=== PATIENT | female | born 1965 | race Caucasian/White ===

== ENCOUNTER 2017-02-09 11:27 | Emergency (ER) | payer BC ==
[2017-02-09 11:38] VITALS: BP 193/113
--- NOTE | 2017-02-09 12:18 | EDM.PDOC ---
ED HPI GENERAL MEDICAL PROBLEM - General Chief Complaint: General Stated Complaint: MED REACTION Time Seen by Provider: 02/09/17 11:56 Source of Information: Reports: Patient History Limitations: Reports: No Limitations - History of Present Illness INITIAL COMMENTS - FREE TEXT/NARRATIVE: Linda presents to the ER today with complaints of cough, nasal congestion, post nasal drip for over 3 weeks, possible medication reaction from bactrim of which she has taken two doses. She complains of cough, head spinning, shaking, racing thoughts, feeling fidgety and tearful. She went in to [facility] clinic this past week for a medication check was given Azithromycin for head cold and post nasal drip. She reports she telephoned the clinic due to no improvement in symptoms and was given bactrim. She denies fevers, chills. She does complain of hot flashes. Last use of tobacco was 4 years ago. - Related Data Allergies Allergy/AdvReac Type Severity Reaction Status Date / Time penicillin Allergy Cannot Verified 01/10/15 10:01 Remember Home Meds: Home Meds ALPRAZolam [Xanax] 0.5 mg PO TID PRN 01/10/15 [History] Aspirin [[place] Aspirin] 81 mg PO DAILY 01/10/15 [History] FLUoxetine HCl [Prozac] 20 mg PO DAILY 01/10/15 [History] Levothyroxine 175 mcg PO ACBRK 01/10/15 [History] Multivitamin with Minerals [Multiple Vitamin] 1 tab PO DAILY 01/10/15 [History] Past Medical History Other Musculoskeletal History: left leg hematoma Psychiatric History: Reports: Anxiety, Depression Endocrine/Metabolic History: Reports: Hypoparathyroidism - Past Surgical History Other HEENT Surgeries/Procedures: laser surg to correct vision Other GI Surgeries/Procedures: lucia, esphagus surg related to meat stuck an dperforation Social & Family History - Tobacco Use Smoking Status *Q: Former Smoker Years of Tobacco use: 30 Packs/Tins Daily: 0.5 Used Tobacco, but Quit: Yes Month Tobacco Last Used: 4 years Second Hand Smoke Exposure: No - Caffeine Use Caffeine Use: Reports: Coffee - Alcohol Use Days Per Week of Alcohol Use: 4 Number of Drinks Per Day: 3 Total Drinks Per Week: 12 - Recreational Drug Use Recreational Drug Use: Yes Recreational Drug Type: Reports: Marijuana/Hashish ED ROS GENERAL - Review of Systems Review Of Systems: See Below Constitutional: Reports: Weakness, Fatigue. Denies: Fever, Chills HEENT: Reports: Sinus Problem, Vertigo. Denies: Ear Discharge, Ear Pain, Eye Pain, Hearing Loss, Throat Pain, Throat Swelling, Vision Change Respiratory: Reports: Cough, Sputum. Denies: Shortness of Breath, Wheezing, Pleuritic Chest Pain Cardiovascular: Reports: Lightheadedness. Denies: Chest Pain, Blood Pressure Problem, Dyspnea on Exertion, Edema, Orthopnea, Palpitations, PND, Syncope Endocrine: Reports: Fatigue GI/Abdominal: Denies: Abdominal Pain, Black Stool, Bloody Stool, Constipation, Diarrhea, Difficulty Swallowing, Distension, Nausea, Vomiting : Denies: Discharge, Dysuria, Frequency, Hematuria, Incontinence, Pain, Urgency, Urinary Retention Musculoskeletal: Reports: Muscle Pain. Denies: Joint Pain, Joint Swelling, Muscle Stiffness Skin: Denies: Pruritis, Rash, Erythema, Wound Neurological: Reports: Dizziness, Weakness. Denies: Confusion, Headache, Numbness, Tingling, Trouble Speaking, Difficulty Walking, Change in Speech, Gait Disturbance Psychiatric: Reports: Anxiety, Confusion, Other (Racing thoughts). Denies: Depression, Hallucinations, Homicidal Ideation, Suicidal Ideation Hematologic/Lymphatic: Reports: No Symptoms Immunologic: Reports: No Symptoms ED EXAM, GENERAL - Physical Exam Exam: See Below Free Text/Narrative:: Linda presents to the ER today with complaints of cough, mucus production rivera in color for over three weeks, sinus congestion, head spinning, feeling shaky, racing thoughts, feeling fidgety, hot flashes and crying frequently. Clinic visit 01/29/2017: She was initially provided azithromycin, followed by bactrim PO. She was also started on venlafaxine 37.5 one tablet for seven days then increase to two tablets. She was instructed to decrease fluoxetine 40mg to 20mg PO for 7 days, then 10mg PO for 7 days then stop. Exam Limited By: No Limitations General Appearance: Alert, WD/WN, Moderate Distress Eye Exam: Bilateral Eye: EOMI, Normal Inspection, PERRL Ears: Normal External Exam, Normal Canal, Hearing Grossly Normal, Normal TMs Ear Exam: Bilateral Ear: Auricle Normal, Canal Normal, TM normal Nose: Nasal Swelling, Clear Rhinorrhea. No: No Blood, Nasal Tenderness Course - Vital Signs Last Recorded V/S: Last Vital Signs Temp 36.7 C 02/09/17 11:36 Pulse 81 02/09/17 11:36 Resp 20 02/09/17 11:36 BP 193/113 H 02/09/17 11:36 Pulse Ox 97 02/09/17 11:36 - Orders/Labs/Meds Orders: Active Orders 24 hr Category Date Time Status Chest 2V [CR] Stat Exams 02/09/17 12:11 Taken Labs: Laboratory Tests 02/09/17 02/09/17 02/09/17 Range/Units 12:26 12:26 12:27 WBC 7.2 (4.5-11.0) K/uL RBC 4.06 (3.30-5.50) M/uL Hgb 13.4 D (12.0-15.0) g/dL Hct 40.3 (36.0-48.0) % MCV 99 H (80-98) fL MCH 33 H (27-31) pg MCHC 33 (32-36) % Plt Count 244 (150-400) K/uL Neut % (Auto) 70 H (36-66) % Lymph % (Auto) 13 L (24-44) % Tama % (Auto) 11 H (2-6) % Eos % (Auto) 6 H (2-4) % Baso % (Auto) 0 (0-1) % Sodium 139 L (140-148) mmol/L Potassium 4.1 (3.6-5.2) mmol/L Chloride 105 (100-108) mmol/L Carbon Dioxide 27 (21-32) mmol/L Anion Gap 11.1 (5.0-14.0) mmol/L BUN 15 (7-18) mg/dL Creatinine 0.8 (0.6-1.0) mg/dL Est Cr Clr Drug Dosing 68.05 mL/min Estimated GFR (MDRD) > 60 (>60) Glucose 86 (74-106) mg/dL Calcium 8.9 (8.5-10.1) mg/dL Total Bilirubin 0.7 (0.2-1.0) mg/dL AST 24 (15-37) U/L ALT 26 (12-78) U/L Alkaline Phosphatase 87 (46-116) U/L Total Protein 7.3 (6.4-8.2) g/dL Albumin 3.8 (3.4-5.0) g/dL Globulin 3.5 (2.3-3.5) g/dL Albumin/Globulin Ratio 1.1 L (1.2-2.2) TSH, Ultra Sensitive 0.911 (0.358-3.740) uIU/mL Urine Color Urine Appearance Urine pH (4.5-8.0) Ur Specific [place] (1.008-1.030) Urine Protein (NEGATIVE) mg/dL Urine Glucose (UA) (NEGATIVE) mg/dL Urine Ketones (NEGATIVE) mg/dL Urine Occult Blood (NEGATIVE) Urine Nitrite (NEGATIVE) Urine Bilirubin (NEGATIVE) Urine Urobilinogen (NORMAL) mg/dL Ur Leukocyte Esterase (NEGATIVE) Urine RBC (0-5) Urine WBC (0-5) Ur Epithelial Cells Amorphous Sediment Urine Bacteria Urine Mucus 02/09/17 Range/Units 13:02 WBC (4.5-11.0) K/uL RBC (3.30-5.50) M/uL Hgb (12.0-15.0) g/dL Hct (36.0-48.0) % MCV (80-98) fL MCH (27-31) pg MCHC (32-36) % Plt Count (150-400) K/uL Neut % (Auto) (36-66) % Lymph % (Auto) (24-44) % Tama % (Auto) (2-6) % Eos % (Auto) (2-4) % Baso % (Auto) (0-1) % Sodium (140-148) mmol/L Potassium (3.6-5.2) mmol/L Chloride (100-108) mmol/L Carbon Dioxide (21-32) mmol/L Anion Gap (5.0-14.0) mmol/L BUN (7-18) mg/dL Creatinine (0.6-1.0) mg/dL Est Cr Clr Drug Dosing mL/min Estimated GFR (MDRD) (>60) Glucose (74-106) mg/dL Calcium (8.5-10.1) mg/dL Total Bilirubin (0.2-1.0) mg/dL AST (15-37) U/L ALT (12-78) U/L Alkaline Phosphatase (46-116) U/L Total Protein (6.4-8.2) g/dL Albumin (3.4-5.0) g/dL Globulin (2.3-3.5) g/dL Albumin/Globulin Ratio (1.2-2.2) TSH, Ultra Sensitive (0.358-3.740) uIU/mL Urine Color Yellow Urine Appearance Clear Urine pH 5.0 (4.5-8.0) Ur Specific [place] 1.020 (1.008-1.030) Urine Protein Negative (NEGATIVE) mg/dL Urine Glucose (UA) Normal (NEGATIVE) mg/dL Urine Ketones Negative (NEGATIVE) mg/dL Urine Occult Blood Negative (NEGATIVE) Urine Nitrite Negative (NEGATIVE) Urine Bilirubin Negative (NEGATIVE) Urine Urobilinogen Normal (NORMAL) mg/dL Ur Leukocyte Esterase Negative (NEGATIVE) Urine RBC Not seen (0-5) Urine WBC Not seen (0-5) Ur Epithelial Cells Rare Amorphous Sediment Not seen Urine Bacteria Not seen Urine Mucus Many 13:05 Recheck of BP 165/82, HR 74 Lab work reviewed with Patient, all her questions were answered. She is in agreement with plan. - Re-Assessments/Exams Free Text/Narrative Re-Assessment/Exam: 02/09/17 12:11 Medication review completed. 02/09/17 13:10 Patient status discussed with Dr. Lobato, he is in agreement with plan. Departure - Departure Time of Disposition: 13:49 Disposition: Home, Self-Care 01 Condition: Good Clinical Impression: Medication reaction, Viral upper respiratory illness, Anxiety - Discharge Information Instructions: Dysphoria Referrals: Kallie Winters PA [Primary Care Provider] - Forms: ED Department Discharge Additional Instructions: You have been treated in the ER today for a medication reaction, upper viral illness and anxiety. With review of your lab work and chest x-ray, there are no acute findings for bacterial infections such as pneumonia. Urine was negative for infection. Use saline nasal spray three times a day. Use fluticasone nasal spray, two sprays each nare, once daily. Take benadryl 25 to 50 mg three times a day as needed for congestion. Use robitussin AC as needed for cough. Your TSH had a significant change after the recent increase of you thyroid medication. The TSH level went from 12.78 to 0.91. It would be best for you to stop taking your levothyroxine for three days. After that, resume your previous dose of Levothyroxine 175mcg tablet. A medication reaction could be from the use of bactrim and venlafaxine while stopping use of the fluoxetine. It would be best for you to stop bactrim. Take venlafaxine one tablet for two days, then stop. Today it would be best to start taking fluoxetine 20mg. Take fluoxetine 20mg daily for 3 days then increase to 40mg daily. Use alprazolam 0.5mg tablet three times a day as needed for feelings of anxiety. You were given #90 tablets on 01/29/2017. Follow up with your primary provider this week or next week. Return for worsening, issues or concerns. - My Orders Last 24 Hours: My Active Orders 02/09/17 12:11 Chest 2V [CR] Stat - Assessment/Plan Last 24 Hours: My Active Orders 02/09/17 12:11 Chest 2V [CR] Stat Assessment:: Medication reaction Viral upper respiratory illness Anxiety Plan: Patient treated in the ER today for a medication reaction, upper viral illness and anxiety. With review of lab work and chest x-ray, there are no acute findings for bacterial infections such as pneumonia. Urine was negative for infection. Use saline nasal spray three times a day. Use fluticasone nasal spray, two sprays each nare, once daily. Take benadryl 25 to 50 mg three times a day as needed for congestion. Use robitussin AC as needed for cough. TSH had a significant change after the recent increase of you thyroid medication. TSH level went from 12.78 (01/29/2017) to 0.91 today. It would be best for her to stop taking levothyroxine for three days. After that, resume previous dose of Levothyroxine 175mcg tablet and follow up with primary provider for further management. A medication reaction could be from the use of bactrim and venlafaxine while stopping use of the fluoxetine. It would be best for you to stop bactrim. Take venlafaxine one tablet for two days, then stop. Today it would be best to start taking fluoxetine 20mg. Take fluoxetine 20mg daily for 3 days then increase to 40mg daily. Use alprazolam 0.5mg tablet three times a day as needed for feelings of anxiety. You were given #90 tablets on 01/29/2017. Follow up with your primary provider this week or next week. Return for worsening, issues or concerns.
--- NOTE | 2017-02-11 09:02 | CR ---
Chest 2V HISTORY: cough for 3 weeks FINDINGS: No acute infiltrate is identified. Cardiomediastinal silhouette is within normal limits. Th ere is no vascular redistribution. Blunting of the left costophrenic angle could represents a small a mount of pleural thickening or fluid. Right costal phrenic angle is clear. Surgical clips overlie the subcutaneous tissues posterior left chest. There are small anterolateral osteophytes lower thoracic spine. IMPRESSION: Blunting of the left costophrenic angle may represent a small amount of left pleural thic kening or fluid. Mild degenerative changes thoracic spine. No other acute chest abnormality is identi fied.
== END 2017-02-09 14:05 | disposition home or self-care (01) ==
LOC: JP.ED 11:27
DX: J06.9 Acute upper respiratory infection, unspecified (principal); F41.9 Anxiety disorder, unspecified; T37.0X5A Adverse effect of sulfonamides, initial encounter; F32.9 Major depressive disorder, single episode, unspecified; Z87.891 Personal history of nicotine dependence; Z79.82 Long term (current) use of aspirin; Z79.899 Other long term (current) drug therapy; Z88.0 Allergy status to penicillin
CPT/HCPCS: 36415; 71020; 71020-26; 80053; 81001; 84443; 85025; 99284

== ENCOUNTER 2017-02-15 07:05 | Day surgery (SDC) | payer BC ==
[2017-02-15] MEDS ORDERED: Midazolam 1 MG/ML 2 ML SDV ONE (07:57)
[2017-02-15] MEDS ORDERED: Propofol 200 MG/20 ML SDV ONE ×2 (07:57→08:40)
[2017-02-15] MEDS ORDERED: fentaNYL 100 MCG/2 ML SDV ONE (07:57)
[2017-02-15] MEDS ORDERED: Lactated Ringers 1,000 ML IV SCH (08:00)
--- NOTE | 2017-02-15 09:25 | OR ---
DATE OF PROCEDURE: 02/15/2017 PREOPERATIVE DIAGNOSIS: Strong family history of colon cancer. Mother had colon cancer at age 47. POSTOPERATIVE DIAGNOSES: Diverticulosis, strong family history of colon cancer. Mother had colon cancer at age 47. PROCEDURE: Colonoscopy to the cecum. ANESTHESIA: IV anesthesia with monitored anesthesia care. INDICATION: This 51-year-old white female is referred for a colonoscopy because of a strong family history of colon cancer. Her mother had colon cancer at age 47. She says she has periodically had colonoscopy since age 24. Her last one was about 3 years ago. I counseled her for the procedure including risks and alternatives, and she gave her informed consent to proceed. PROCEDURE IN DETAIL: The patient was placed in the left lateral decubitus position. IV anesthesia was administered by the Anesthesia Service. Time-out was held. A rectal exam was performed, which was unremarkable. The flexible video Olympus colonoscope was introduced through her anus, up her rectum, and out her colon, all the way to the cecum. En route, we saw several left-sided diverticula. There was no bleeding or inflammation associated with any of them. Once the cecum was reached, the scope was slowly withdrawn, examining the mucosa throughout. No additional mucosal abnormalities were noted. The scope was retroflexed in the rectum with the distal rectum appearing unremarkable. The scope was straightened and removed. She tolerated the procedure well. Taiwo Hatfield MD /[id number] MTDD
[2017-02-15 10:00] VITALS: BP 174/92
== END 2017-02-15 10:04 | disposition home or self-care (01) ==
LOC: JP.SDS 07:05
PROVIDERS: ATTEND Surgery
DX: Z12.11 Encounter for screening for malignant neoplasm of colon (principal); Z80.0 Family history of malignant neoplasm of digestive organs; K57.30 Diverticulosis of large intestine without perforation or abscess without bleeding; Z88.0 Allergy status to penicillin; Z87.891 Personal history of nicotine dependence; K21.9 Gastro-esophageal reflux disease without esophagitis; F41.9 Anxiety disorder, unspecified; F32.9 Major depressive disorder, single episode, unspecified; E20.9 Hypoparathyroidism, unspecified; Z90.710 Acquired absence of both cervix and uterus; Z98.51 Tubal ligation status; Z98.890 Other specified postprocedural states
CPT/HCPCS: 45378; J2250; J2704; J3010; J7120

== ENCOUNTER 2018-04-28 06:32 | Emergency (ER) | payer BC ==
[2018-04-28 06:41] VITALS: BP 125/66
--- NOTE | 2018-04-28 07:17 | EDM.PDOC ---
ED HPI GENERAL MEDICAL PROBLEM - General Chief Complaint: Respiratory Problem Stated Complaint: MEDICAL VIA [facility] Time Seen by Provider: 04/28/18 07:00 Source of Information: Reports: Patient, EMS, Family History Limitations: Reports: Altered Mental Status - History of Present Illness INITIAL COMMENTS - FREE TEXT/NARRATIVE: 52-year-old female brought in by ambulance with an acute anxiety reaction to an illness of her . Initially on presentation she was too anxious to give a decent history, however now she is calm down. Initially she couldn't breathe but she is much improved, now is just tired. No pain. Onset: Sudden Duration: Hour(s): (within the last 2 hours) Treatments COSMETIC ASSEMBLER: Reports: Other (see below) Other Treatments COSMETIC ASSEMBLER: none - Related Data Allergies Allergy/AdvReac Type Severity Reaction Status Date / Time penicillin Allergy Hives Verified 04/28/18 06:41 Home Meds: Home Meds ALPRAZolam [Xanax] 0.5 mg PO TID PRN 01/10/15 [History] Aspirin [[place] Aspirin] 81 mg PO DAILY 01/10/15 [History] FLUoxetine HCl [Prozac] 40 mg PO DAILY 01/10/15 [History] Multivitamin with Minerals [Multiple Vitamin] 1 tab PO DAILY 01/10/15 [History] Levothyroxine Sodium [Synthroid] 175 mcg PO DAILY 02/13/17 [History] Past Medical History HEENT History: Reports: None Gastrointestinal History: Reports: GERD Genitourinary History: Reports: None SANITATION SUPERINTENDENT History: Reports: Dysfunctional Uterine Bleeding, Other Musculoskeletal History: left leg hematoma Psychiatric History: Reports: Anxiety, Depression Endocrine/Metabolic History: Reports: Hypoparathyroidism - Past Surgical History HEENT Surgical History: Reports: LASIK Other HEENT Surgeries/Procedures: laser surg to correct vision GI Surgical History: Reports: Colonoscopy, EGD, Lucia Fundoplication Other GI Surgeries/Procedures: lucia, esphagus surg related to meat stuck an dperforation Female Surgical History: Reports: Hysterectomy, Tubal Ligation Endocrine Surgical History: Reports: None Social & Family History - Family History Family Medical History: Noncontributory - Tobacco Use Smoking Status *Q: Unknown Ever Smoked - Caffeine Use Caffeine Use: Reports: Coffee, Soda - Recreational Drug Use Recreational Drug Use: No ED ROS GENERAL - Review of Systems Review Of Systems: See Below Constitutional: Denies: Fever, Chills HEENT: Reports: No Symptoms Respiratory: Reports: Shortness of Breath (Initially, now resolved) Cardiovascular: Denies: Chest Pain GI/Abdominal: Reports: No Symptoms : Reports: No Symptoms ED EXAM, GENERAL - Physical Exam Exam: See Below Exam Limited By: No Limitations General Appearance: Alert, No Apparent Distress (At the time of my exam she was in no acute distress however she has improved dramatically) Respiratory/Chest: No Respiratory Distress, Lungs Clear Cardiovascular: Regular Rate, Rhythm GI/Abdominal: Soft, Non-Tender Neurological: Alert, Oriented Psychiatric: Anxious Course - Vital Signs Last Recorded V/S: Last Vital Signs Temp 96.0 F 04/28/18 06:35 Pulse 77 04/28/18 06:35 Resp 24 H 04/28/18 06:35 BP 125/66 04/28/18 06:35 Pulse Ox 100 04/28/18 06:35 - Re-Assessments/Exams Free Text/Narrative Re-Assessment/Exam: 04/28/18 07:16 No treatment needed, patient is improved on her own. She'll be discharged so she can go to bedside with her who also arrived by ambulance. Departure - Departure Time of Disposition: 07:25 Disposition: Home, Self-Care 01 Condition: Good Clinical Impression: Anxiety as acute reaction to exceptional stress - Discharge Information Instructions: Panic Attack, [id number] Referrals: PCP,None [Primary Care Provider] - Forms: ED Department Discharge Care Plan Goals: Continue any current medications as prescribed, no new treatment needed. Recheck at any time if worsening or concerns.
== END 2018-04-28 07:26 | disposition home or self-care (01) ==
LOC: JP.ED 06:32
DX: F41.9 Anxiety disorder, unspecified (principal); F43.0 Acute stress reaction; F32.9 Major depressive disorder, single episode, unspecified; K21.9 Gastro-esophageal reflux disease without esophagitis; Z88.0 Allergy status to penicillin; Z79.899 Other long term (current) drug therapy; Z79.82 Long term (current) use of aspirin
CPT/HCPCS: 99284

== ENCOUNTER 2020-07-18 04:20 | Emergency (ER) | payer BC ==
[2020-07-18] MEDS: LORazepam 2 MG/ML SDV IVPUSH ONE (04:54)
[2020-07-18] MEDS: Sodium Chloride 0.9% 1,000 ML IV SCH (04:54)
[2020-07-18] MEDS: HYDROmorphone 0.5 MG/0.5 ML Syringe IVPUSH ONE (05:01)
--- NOTE | 2020-07-18 05:04 | EDM.PDOC ---
<Mario Lobato - Last Filed: 07/18/20 06:34> ED HPI GENERAL MEDICAL PROBLEM - General Chief Complaint: Gastrointestinal Problem Stated Complaint: THROWING UP Time Seen by Provider: 07/18/20 04:30 Source of Information: Reports: Patient, Family History Limitations: Reports: No Limitations - History of Present Illness INITIAL COMMENTS - FREE TEXT/NARRATIVE: 54-year-old female who has had nausea and vomiting intermittently along with diarrhea for the last 4 days. It was pretty severe 3 days ago when she was checked in the emergency room in another town and was worked up and everything was "okay". She was feeling better, yesterday it was a better day without vomiting but tonight she started having nausea and vomiting at 8 PM and has been throwing up for 4 hours. She has extreme anxiety and is hyperventilating, she has chest pain, she is tearful and very anxious. She does have a history of some type of missing surgery. She is also been having a lot of heartburn over the past few weeks. It does improve with antacids. She has not vomited blood or had blood in the diarrhea. No fevers or chills. She really has not eaten anything since Saturday, 3 days ago. Onset: Sudden Duration: Waxing/Waning (4 days) Location: Reports: Chest, Abdomen Improves with: Reports: None Worsens with: Reports: Eating Associated Symptoms: Reports: Chest Pain, Diaphoresis, Malaise, Nausea/Vomiting, Other (Diarrhea and extreme anxiety). Denies: Cough chest Pain Score (Numeric/FACES): 3 - Related Data Allergies Allergy/AdvReac Type Severity Reaction Status Date / Time penicillin Allergy Hives Verified 07/18/20 04:30 Home Meds: Home Meds ALPRAZolam [Xanax] 0.5 mg PO TID PRN 01/10/15 [History] Aspirin [[place] Aspirin] 81 mg PO DAILY 01/10/15 [History] FLUoxetine HCl [Prozac] 40 mg PO DAILY 01/10/15 [History] Multivitamin with Minerals [Multiple Vitamin] 1 tab PO DAILY 01/10/15 [History] Levothyroxine Sodium [Synthroid] 150 mcg PO DAILY 02/13/17 [History] Past Medical History HEENT History: Reports: None Gastrointestinal History: Reports: GERD Genitourinary History: Reports: None TREE KILLER History: Reports: Dysfunctional Uterine Bleeding, Musculoskeletal History: Reports: Other (See Below) Other Musculoskeletal History: left leg hematoma Psychiatric History: Reports: Anxiety, Depression Endocrine/Metabolic History: Reports: Hypoparathyroidism - Past Surgical History HEENT Surgical History: Reports: LASIK Other HEENT Surgeries/Procedures: laser surg to correct vision GI Surgical History: Reports: Colonoscopy, EGD, Kelley Fundoplication Other GI Surgeries/Procedures: kelley, esphagus surg related to meat stuck an dperforation Female Surgical History: Reports: Hysterectomy, Tubal Ligation Endocrine Surgical History: Reports: None Musculoskeletal Surgical History: Reports: None Social & Family History - Family History Family Medical History: No Pertinent Family History - Tobacco Use Tobacco Use Status *Q: Never Tobacco User - Caffeine Use Caffeine Use: Reports: Coffee, Soda - Recreational Drug Use Recreational Drug Use: Yes Drug Use in Last 12 Months: Yes Recreational Drug Type: Reports: Marijuana/Hashish Recreational Drug Use Frequency: Weekly ED ROS GENERAL - Review of Systems Review Of Systems: See Below Constitutional: Reports: Chills, Malaise, Decreased Appetite HEENT: Denies: Throat Pain Respiratory: Denies: Shortness of Breath, Cough Cardiovascular: Reports: Chest Pain. Denies: Palpitations GI/Abdominal: Reports: Abdominal Pain, Diarrhea, Nausea, Vomiting : Reports: No Symptoms Musculoskeletal: Reports: No Symptoms Skin: Reports: Diaphoresis Neurological: Denies: Headache Psychiatric: Reports: Anxiety ED EXAM, GENERAL - Physical Exam Exam: See Below Exam Limited By: No Limitations General Appearance: Alert, Moderate Distress Eye Exam: Bilateral Eye: Normal Inspection (No jaundice) Head: Atraumatic Respiratory/Chest: No Respiratory Distress, Lungs Clear Cardiovascular: Regular Rate, Rhythm GI/Abdominal: Soft, Tender (Across the upper abdomen) Neurological: Alert, Oriented Psychiatric: Anxious (Hyperventilating) Skin Exam: Warm, Dry Course - Re-Assessments/Exams Free Text/Narrative Re-Assessment/Exam: 07/18/20 06:35 Patient was placed on cardiac monitoring is in a normal sinus rhythm. IV was started and she was bolused with 1 L normal saline, then given 1 mg of IV Ativan, 1.25 mg of droperidol and 0.5 mg of IV Dilaudid. Within 15 minutes she started to settle down, and 1 hour she was sleeping soundly. Lipase returned normal, troponin 0.024. 07/18/20 06:36 BUN and creatinine is just slightly elevated, electrolytes are otherwise good. Anion gap is elevated. Patient was reexamined at 6:30 AM and now has no abdominal pain, no nausea and is sleeping comfortably. A repeat troponin at 8 AM will be done and if that is negative patient can go home. Care was turned over to Dr. James. Departure - Departure Disposition: DC/Tfer to [facility] 02 Clinical Impression: Vomiting and diarrhea, Mild dehydration Chest pain Qualifiers: Chest pain type: unspecified Qualified Code(s): R07.9 - Chest pain, unspecified - Discharge Information Referrals: Kallei Winters PA [Primary Care Provider] - Forms: ED Department Discharge Sepsis Event Note (ED) - Evaluation Sepsis Screening Result: No Definite Risk <Kody James - Last Filed: 07/18/20 09:04> #1 Interpretation EKG Date: 07/18/20 Time: 08:40 Rhythm: NSR Rate (Beats/Min): 58 [place]: Normal P-Wave: Present QRS: Normal ST-T: Normal QT: Prolonged Comparison: NA - No Prior EKG (Inverted T in III, flattened T in AVF. No old EKG's.) Course - Vital Signs Text/Narrative:: Dr. Fraire accepts in transfer at 0900h at [place]. Last Recorded V/S: Last Vital Signs Temp 35.7 C L 07/18/20 04:35 Pulse 59 L 07/18/20 08:35 Resp 13 07/18/20 08:35 BP 130/81 07/18/20 08:35 Pulse Ox 95 07/18/20 08:35 - Orders/Labs/Meds Orders: Active Orders 24 hr Category Date Time Status EKG Documentation Completion [RC] ASDIRECTED Care 07/18/20 08:34 Active Sodium Chloride 0.9% [Normal Saline] 1,000 ml Med 07/18/20 05:00 Active IV ASDIRECTED EKG 12 Lead [EK] Routine Ther 07/18/20 08:34 Ordered Medication Orders Sodium Chloride (Normal Saline) 1,000 mls @ 1,000 mls/hr IV ASDIRECTED EMERSON Last Admin: 07/18/20 04:54 Dose: 1,000 mls/hr Documented by: LOPEZ Labs: Laboratory Tests 07/18/20 07/18/20 07/18/20 Range/Units 04:45 04:45 08:00 WBC 12.3 H (4.5-11.0) K/uL RBC 5.01 (3.30-5.50) M/uL Hgb 16.3 H D (12.0-15.0) g/dL Hct 48.1 H (36.0-48.0) % MCV 96 (80-98) fL MCH 33 H (27-31) pg MCHC 34 (32-36) % Plt Count 295 (150-400) K/uL Neut % (Auto) 89 H (36-66) % Lymph % (Auto) 7 L (24-44) % [place] % (Auto) 4 (2-6) % Eos % (Auto) 0 L (2-4) % Baso % (Auto) 0 (0-1) % Sodium 140 (140-148) mmol/L Potassium 3.8 (3.6-5.2) mmol/L Chloride 95 L (100-108) mmol/L Carbon Dioxide 23 (21-32) mmol/L Anion Gap 25.8 H (5.0-14.0) mmol/L BUN 23 H D (7-18) mg/dL Creatinine 1.1 H (0.6-1.0) mg/dL Est Cr Clr Drug Dosing 47.80 mL/min Estimated GFR (MDRD) 52 L (>60) Glucose 167 H (74-106) mg/dL Calcium 10.1 (8.5-10.1) mg/dL Total Bilirubin 1.1 H D (0.2-1.0) mg/dL AST 29 (15-37) U/L ALT 32 (12-78) U/L Alkaline Phosphatase 105 (46-116) U/L Troponin I 0.024 0.049 (0.000-0.056) ng/mL Total Protein 8.6 H (6.4-8.2) g/dL Albumin 4.6 (3.4-5.0) g/dL Globulin 4.0 H (2.3-3.5) g/dL Albumin/Globulin Ratio 1.2 (1.2-2.2) Lipase 147 (73-393) U/L Meds: Medications Generic Name Dose Route Start Last Admin Trade Name Freq PRN Reason Stop Dose Admin Sodium Chloride 1,000 mls @ 1,000 mls/hr 07/18/20 05:00 07/18/20 04:54 Normal Saline IV 1,000 mls/hr ASDIRECTED EMEROSN Administration Discontinued Medications Generic Name Dose Route Start Last Admin Trade Name Freq PRN Reason Stop Dose Admin Droperidol 1.25 mg 07/18/20 04:48 07/18/20 04:56 Droperidol 5 Mg/2 Ml Sdv IVPUSH 07/18/20 04:49 1.25 mg ONETIME ONE Administration Hydromorphone HCl 0.5 mg 07/18/20 04:51 07/18/20 05:01 Hydromorphone 0.5 Mg/0.5 Ml Syringe IVPUSH 07/18/20 04:52 0.5 mg ONETIME ONE Administration Lorazepam 1 mg 07/18/20 04:48 07/18/20 04:54 Lorazepam 2 Mg/Ml Sdv IVPUSH 07/18/20 04:49 1 mg ONETIME ONE Administration Departure - Departure Time of Disposition: 09:15 Condition: Fair - Discharge Information *PRESCRIPTION DRUG MONITORING PROGRAM REVIEWED*: Not Applicable *COPY OF PRESCRIPTION DRUG MONITORING REPORT IN PATIENT HUGO: Not Applicable Sepsis Event Note (ED) - Focused Exam Vital Signs: Vital Signs Temp Pulse Resp BP Pulse Ox 07/18/20 08:35 59 L 13 130/81 95 07/18/20 06:06 65 13 103/62 96 07/18/20 05:37 66 13 94/63 96 07/18/20 04:35 35.7 C L 72 22 H 98/71 99 07/18/20 04:32 35.7 C L 72 22 H 98/71 99 - My Orders Last 24 Hours: My Active Orders 07/18/20 08:34 EKG Documentation Completion [RC] ASDIRECTED EKG 12 Lead [EK] Routine - Assessment/Plan Last 24 Hours: My Active Orders 07/18/20 08:34 EKG Documentation Completion [RC] ASDIRECTED EKG 12 Lead [EK] Routine
[2020-07-18 08:36] VITALS: BP 130/81; PULSE 59
== END 2020-07-18 09:43 ==
LOC: JP.ED 04:20
DX: E86.0 Dehydration (principal); R11.2 Nausea with vomiting, unspecified; R19.7 Diarrhea, unspecified; R07.9 Chest pain, unspecified; E20.9 Hypoparathyroidism, unspecified; Z88.0 Allergy status to penicillin; Z79.82 Long term (current) use of aspirin; Z79.899 Other long term (current) drug therapy
CPT/HCPCS: 36415; 80053; 83690; 84484; 85025; 93005; 96374; 96375; 99285; J1170; J1790; J2060; J7030

== ENCOUNTER 2020-08-09 05:36 | Day surgery (SDC) | payer BC ==
[2020-08-09] MEDS ORDERED: Dextrose 5%-Lactated Ringers 1,000 ML IV SCH (06:15)
[2020-08-09] MEDS ORDERED: Glycopyrrolate 0.2 MG/ML 2 ML SDV IVPUSH ONE (07:00)
[2020-08-09] MEDS ORDERED: fentaNYL 100 MCG/2 ML SDV ONE (07:04)
[2020-08-09] MEDS ORDERED: Propofol 200 MG/20 ML SDV ONE (07:04)
[2020-08-09] MEDS ORDERED: Midazolam 1 MG/ML 2 ML SDV ONE (07:04)
[2020-08-09 09:01] VITALS: BP 133/88; PULSE 77
--- NOTE | 2020-08-28 15:03 | OR ---
DATE OF PROCEDURE: 08/09/2020 SURGEON: Donovan Hernandez MD PREOPERATIVE DIAGNOSIS: Recurrent gastroesophageal reflux symptoms. POSTOPERATIVE DIAGNOSES: 1. Recurrent gastroesophageal reflux disease with loosened Kelley fundoplication and possible Addison esophagus. 2. Mild antral gastritis. OPERATIVE PROCEDURE: Esophagogastroduodenoscopy with: 1. Biopsy of esophagogastric junction for histologic evaluation. 2. Biopsies of antrum for CLOtest. ANESTHESIA: IV sedation. INDICATIONS FOR PROCEDURE: This is a 55-year-old female, now roughly 17 years status post Kelley fundoplication, this having been done in [place], [place]. She is having some recurrent reflux symptoms. At this point, the plan is proceed with an upper endoscopy with biopsies as indicated. Potential risks including bleeding and perforation were discussed, and the patient wishes to proceed. DETAILS OF PROCEDURE: The patient was taken to the operating room and placed in a left lateral decubitus position. IV sedation was administered, after which the upper GI endoscope was passed orally through the length of the esophagus into the stomach with retroflexion view of the fundus, and thereafter, through the pyloric channel into the junction of the 3rd and 4th portions of the duodenum. Findings included normal hypopharynx, larynx, upper esophageal sphincter, and esophageal body. At the EG junction, there was some mild edema and redness of the distal esophageal mucosa. No erosions or ulcers were seen. There was some upward extension of the columnar mucosa above the upper gastric folds consistent with some possible Addison esophagus. No stricturing, plaquing, or other signs suggestive of neoplasia were seen. Within the stomach, retroflexion revealed what appeared to be somewhat loosened Kelley fundoplication. Otherwise, there was some patchy redness in the antrum. The visualized portions of the duodenum were unremarkable. At this point, biopsies were obtained from the antrum and sent for CLOtest for H pylori. Multiple biopsies were then obtained from the area of the esophagogastric junction and sent for histologic evaluation. No bleeding from the biopsy sites was seen, and the procedure was then concluded. The patient was taken to the recovery room in satisfactory condition. Donovan Hernandez MD /[id number]
== END 2020-08-09 09:00 | disposition home or self-care (01) ==
LOC: JP.SDS 05:36
PROVIDERS: ATTEND Surgery
DX: K21.9 Gastro-esophageal reflux disease without esophagitis (principal); K29.70 Gastritis, unspecified, without bleeding; Z88.0 Allergy status to penicillin
CPT/HCPCS: 43239; 87081; 88305; J2250; J2704; J3010; J3490; J7121

== ENCOUNTER 2020-08-27 11:52 | Emergency (ER) | payer BC ==
[2020-08-27] MEDS ORDERED: Sodium Chloride 0.9% 10 ML Syringe FLUSH PRN (12:09)
[2020-08-27] MEDS ORDERED: LORazepam 2 MG/ML SDV IVPUSH ONE (12:11)
[2020-08-27] MEDS ORDERED: Prochlorperazine 10 MG/2 ML SDV IM ONE (12:14)
[2020-08-27] MEDS ORDERED: LORazepam 2 MG/ML SDV ONE (12:14)
[2020-08-27] MEDS ORDERED: diphenhydrAMINE 50 MG/ML SDV IVPUSH PRN (12:15)
--- NOTE | 2020-08-27 12:57 | EDM.PDOC ---
ED HPI GENERAL MEDICAL PROBLEM - General Chief Complaint: Gastrointestinal Problem Stated Complaint: VOMITING AND PAINS IN CHEST Time Seen by Provider: 08/27/20 12:08 Source of Information: Reports: Patient, Family, RN History Limitations: Reports: No Limitations - History of Present Illness INITIAL COMMENTS - FREE TEXT/NARRATIVE: Pt brought in by ambulance due to nausea/vomiting, epigastric pain. Episode started this morning. Pt has has similar previous episodes in the past without finding cause and resolved on own. Pt states she has had a lap lucia in the past. is with pt and states she uses occasional marijuana every few days. Nothing has helped with the nausea/vomiting this am. She has been dry heaving since arrival and increasing anxiety. Onset: Today, Sudden Onset Date: 08/27/20 Onset Time: 08:00 Duration: Getting Worse Location: Reports: Abdomen (epigastric) Quality: Reports: Other (colic) Severity: Severe Improves with: Reports: None Worsens with: Reports: Movement Context: Reports: Other Associated Symptoms: Reports: Nausea/Vomiting Treatments RETIREMENT CONSULTANT: Reports: Other (see below) Other Treatments RETIREMENT CONSULTANT: IM zofran - Related Data Allergies Allergy/AdvReac Type Severity Reaction Status Date / Time penicillin Allergy Hives Verified 08/27/20 11:58 Home Meds: Home Meds ALPRAZolam [Xanax] 0.5 mg PO TID PRN 01/10/15 [History] Aspirin [[place] Aspirin] 81 mg PO DAILY 01/10/15 [History] FLUoxetine HCl [Prozac] 40 mg PO DAILY 01/10/15 [History] Multivitamin with Minerals [Multiple Vitamin] 1 tab PO DAILY 01/10/15 [History] Levothyroxine Sodium [Synthroid] 175 mcg PO DAILY 02/13/17 [History] Pantoprazole 20 mg PO ACBREAKFAST 08/05/20 [History] Celecoxib 200 mg PO BID 08/27/20 [History] Prochlorperazine [Compazine] 5 mg PO Q8H #15 tab 08/27/20 [Rx] Past Medical History HEENT History: Reports: None Gastrointestinal History: Reports: Colon Polyp, GERD Genitourinary History: Reports: None LEAD TECHNICAL ARCHITECT History: Reports: Dysfunctional Uterine Bleeding, Musculoskeletal History: Reports: Other (See Below) Other Musculoskeletal History: left leg hematoma Psychiatric History: Reports: Anxiety, Depression Endocrine/Metabolic History: Reports: Hypoparathyroidism - Infectious Disease History Infectious Disease History: Reports: Chicken Pox, Novel Coronavirus - Past Surgical History HEENT Surgical History: Reports: LASIK Other HEENT Surgeries/Procedures: laser surg to correct vision GI Surgical History: Reports: Colonoscopy, EGD, Lucia Fundoplication Other GI Surgeries/Procedures: lucia, esphagus surg related to meat stuck an dperforation Female Surgical History: Reports: Hysterectomy, Tubal Ligation Endocrine Surgical History: Reports: None Musculoskeletal Surgical History: Reports: None Social & Family History - Family History Family Medical History: No Pertinent Family History - Tobacco Use Tobacco Use Status *Q: Never Tobacco User - Caffeine Use Caffeine Use: Reports: Coffee, Tea - Alcohol Use Days Per Week of Alcohol Use: 2 Number of Drinks Per Day: 2 Total Drinks Per Week: 4 - Recreational Drug Use Recreational Drug Use: Yes Recreational Drug Type: Reports: Marijuana/Hashish Recreational Drug Use Frequency: Weekly ED ROS GENERAL - Review of Systems Review Of Systems: See Below Constitutional: Reports: No Symptoms HEENT: Reports: No Symptoms Respiratory: Reports: No Symptoms Cardiovascular: Reports: No Symptoms Endocrine: Reports: No Symptoms GI/Abdominal: Reports: Abdominal Pain, Nausea, Vomiting, Other (dry heaves) : Reports: No Symptoms Musculoskeletal: Reports: No Symptoms Skin: Reports: No Symptoms Neurological: Reports: No Symptoms Psychiatric: Reports: Anxiety ED EXAM, GI/ABD - Physical Exam Exam: See Below Exam Limited By: No Limitations General Appearance: Anxious, Moderate Distress Throat/Mouth: Normal Inspection, Normal Voice, No Airway Compromise Neck: Normal Inspection Respiratory/Chest: No Respiratory Distress, Lungs Clear, Normal Breath Sounds, No Accessory Muscle Use, Chest Non-Tender Cardiovascular: Normal Peripheral Pulses, Regular Rate, Rhythm, No Edema GI/Abdominal Exam: Normal Bowel Sounds, Soft, Tender (epigastric region) Extremities: Normal Inspection, Normal Range of Motion Neurological: Alert, Oriented Psychiatric: Anxious Skin Exam: Warm, Dry Lymphatic: No Adenopathy Course - Vital Signs Last Recorded V/S: Last Vital Signs Temp 34.8 C L 08/27/20 12:29 Pulse 67 08/27/20 13:07 Resp 8 L 08/27/20 13:07 BP 180/103 H 08/27/20 13:07 Pulse Ox 95 08/27/20 13:07 - Orders/Labs/Meds Orders: Active Orders 24 hr Category Date Time Status Peripheral IV Insertion Adult [OM.PC] Routine Oth 08/27/20 12:09 Ordered Labs: Laboratory Tests 08/27/20 08/27/20 08/27/20 Range/Units 12:30 12:30 12:30 WBC 14.8 H (4.5-11.0) K/uL RBC 4.34 (3.30-5.50) M/uL Hgb 14.2 D (12.0-15.0) g/dL Hct 42.9 (36.0-48.0) % MCV 99 H (80-98) fL MCH 33 H (27-31) pg MCHC 33 (32-36) % Plt Count 280 (150-400) K/uL Neut % (Auto) 84 H (36-66) % Lymph % (Auto) 9 L (24-44) % [place] % (Auto) 7 H (2-6) % Eos % (Auto) 0 L (2-4) % Baso % (Auto) 0 (0-1) % Sodium 143 (140-148) mmol/L Potassium 3.4 L (3.6-5.2) mmol/L Chloride 102 (100-108) mmol/L Carbon Dioxide 22 (21-32) mmol/L Anion Gap 22.4 H (5.0-14.0) mmol/L BUN 10 D (7-18) mg/dL Creatinine 1.0 (0.6-1.0) mg/dL Est Cr Clr Drug Dosing 51.96 mL/min Estimated GFR (MDRD) 57 L (>60) Glucose 192 H (74-106) mg/dL Calcium 9.3 (8.5-10.1) mg/dL Total Bilirubin 0.6 (0.2-1.0) mg/dL AST 28 (15-37) U/L ALT 26 (12-78) U/L Alkaline Phosphatase 100 (46-116) U/L C-Reactive Protein (0.0-0.3) mg/dL Total Protein 7.4 (6.4-8.2) g/dL Albumin 3.9 (3.4-5.0) g/dL Globulin 3.5 (2.3-3.5) g/dL Albumin/Globulin Ratio 1.1 L (1.2-2.2) Amylase 28 (25-115) U/L Lipase 112 (73-393) U/L 08/27/20 Range/Units 12:30 WBC (4.5-11.0) K/uL RBC (3.30-5.50) M/uL Hgb (12.0-15.0) g/dL Hct (36.0-48.0) % MCV (80-98) fL MCH (27-31) pg MCHC (32-36) % Plt Count (150-400) K/uL Neut % (Auto) (36-66) % Lymph % (Auto) (24-44) % [place] % (Auto) (2-6) % Eos % (Auto) (2-4) % Baso % (Auto) (0-1) % Sodium (140-148) mmol/L Potassium (3.6-5.2) mmol/L Chloride (100-108) mmol/L Carbon Dioxide (21-32) mmol/L Anion Gap (5.0-14.0) mmol/L BUN (7-18) mg/dL Creatinine (0.6-1.0) mg/dL Est Cr Clr Drug Dosing mL/min Estimated GFR (MDRD) (>60) Glucose (74-106) mg/dL Calcium (8.5-10.1) mg/dL Total Bilirubin (0.2-1.0) mg/dL AST (15-37) U/L ALT (12-78) U/L Alkaline Phosphatase (46-116) U/L C-Reactive Protein 0.44 H (0.0-0.3) mg/dL Total Protein (6.4-8.2) g/dL Albumin (3.4-5.0) g/dL Globulin (2.3-3.5) g/dL Albumin/Globulin Ratio (1.2-2.2) Amylase (25-115) U/L Lipase (73-393) U/L Meds: Medications Discontinued Medications Generic Name Dose Route Start Last Admin Trade Name Freq PRN Reason Stop Dose Admin Diphenhydramine HCl 25 mg 08/27/20 12:15 08/27/20 12:21 Diphenhydramine 50 Mg/Ml Sdv IVPUSH 25 mg Q4H PRN Administration Nausea Lorazepam 0.5 mg 08/27/20 12:11 08/27/20 12:17 Lorazepam 2 Mg/Ml Sdv IVPUSH 08/27/20 12:12 0.5 mg ONETIME ONE Administration Lorazepam Confirm 08/27/20 12:14 08/27/20 12:24 Lorazepam 2 Mg/Ml Sdv Administered 08/27/20 12:15 Not Given Dose 2 mg .ROUTE .STK-MED ONE Prochlorperazine Edisylate 2.5 mg 08/27/20 12:14 08/27/20 12:24 Prochlorperazine 10 Mg/2 Ml Sdv IM 08/27/20 12:15 2.5 mg ONETIME ONE Administration Sodium Chloride 10 ml 08/27/20 12:09 08/27/20 12:25 Sodium Chloride 0.9% 10 Ml Syringe FLUSH 10 ml ASDIRECTED PRN Administration Keep Vein Open - Re-Assessments/Exams Free Text/Narrative Re-Assessment/Exam: 08/27/20 14:00 After pt received Ativan, Compazine, benadryl combination, pt had significant decrease in symptoms. Pt feels much better is is resting comfortable in minimal pain (2-3). Departure - Departure Time of Disposition: 15:07 Disposition: Home, Self-Care 01 Condition: Fair Clinical Impression: Cannabinoid hyperemesis syndrome - Discharge Information *PRESCRIPTION DRUG MONITORING PROGRAM REVIEWED*: No *COPY OF PRESCRIPTION DRUG MONITORING REPORT IN PATIENT HUGO: No Prescriptions: Prochlorperazine [Compazine] 5 mg PO Q8H #15 tab Instructions: Dehydration, Adult, [id number], Nausea and Vomiting, Adult Referrals: Kallie Winters PA [Primary Care Provider] - Forms: ED Department Discharge Additional Instructions: Followup with primary care provider if symptoms worse or if vomiting returns. Cease marijuana consumption. Sepsis Event Note (ED) - Evaluation Sepsis Screening Result: No Definite Risk - Focused Exam Vital Signs: Vital Signs Temp Pulse Resp BP Pulse Ox 08/27/20 13:07 67 8 L 180/103 H 95 08/27/20 12:46 66 18 156/94 H 95 08/27/20 12:29 34.8 C L 59 L 23 H 173/92 H 99 08/27/20 12:26 64 32 H 173/92 H 100 08/27/20 11:59 64 183/109 H 100 - My Orders Last 24 Hours: My Active Orders 08/27/20 12:09 Peripheral IV Insertion Adult [OM.PC] Routine - Assessment/Plan Last 24 Hours: My Active Orders 08/27/20 12:09 Peripheral IV Insertion Adult [OM.PC] Routine Assessment:: hyperemesis r/t Cannibis use Plan: Pt to cease cannibis consumption. May use Compazine 5 mg up to three times a day as needed for nausea/vomiting with 25 mg of benadryl. Continue to use xanax as Rx'd by primary care provider. Followup with primary care provider if symptoms return, Return to ER if primary care unavailable.
[2020-08-27 13:18] VITALS: BP 180/103; PULSE 67
== END 2020-08-27 15:07 | disposition home or self-care (01) ==
LOC: JP.ED 11:52
DX: R11.2 Nausea with vomiting, unspecified (principal); K21.9 Gastro-esophageal reflux disease without esophagitis; E03.9 Hypothyroidism, unspecified; Z79.82 Long term (current) use of aspirin; Z88.0 Allergy status to penicillin; Z79.899 Other long term (current) drug therapy; Z86.16 Personal history of COVID-19
CPT/HCPCS: 36415; 80053; 82150; 83690; 85025; 86140; 96372; 96374; 96375; 99283; 99284; J0780; J1200; J2060

== ENCOUNTER → 2022-01-23 | Day surgery (SDC) | payer BC ==
[~2022-01-23] MED LIST: Lactated Ringers 1,000 ML IV SCH; Midazolam 1 MG/ML 2 ML SDV ONE; Propofol 200 MG/20 ML SDV ONE; fentaNYL 100 MCG/2 ML SDV ONE
== END ==
LOC: JP.SDS 06:00
PROVIDERS: ATTEND Family Medicine
DX: Z12.11 Encounter for screening for malignant neoplasm of colon (principal); K57.30 Diverticulosis of large intestine without perforation or abscess without bleeding; Z88.0 Allergy status to penicillin; Z20.822 Contact with and (suspected) exposure to COVID-19
CPT/HCPCS: 45378; J2250; J2704; J3010; J7120

== ENCOUNTER 2024-01-13 06:29 | Day surgery (SDC) | payer SELFPAY ==
[2024-01-13 07:02] LABS: HEMATOCRIT 37.8 % (34.3-46.0); MEAN CORPUSCULAR HEMOGLOBIN 33.1 pg (31.6-35.5); MEAN CORPUSCULAR HGB CONC 34.4 g/dL (31.6-35.5); MEAN CORPUSCULAR VOLUME 96.2 fL (81.4-99.0); RED BLOOD CELL COUNT 3.93 M/uL (3.77-5.24); WHITE BLOOD CELL COUNT,WBC 3.7 K/uL (3.2-11.0)
[2024-01-13] MEDS ORDERED: fentaNYL 100 MCG/2 ML SDV ONE (07:11)
[2024-01-13] MEDS ORDERED: Propofol 200 MG/20 ML SDV ONE (07:11)
[2024-01-13] MEDS ORDERED: Midazolam 1 MG/ML 2 ML SDV ONE (07:11)
[2024-01-13] MEDS ORDERED: Lidocaine 0.5% 50 ML SDV ONE (07:13)
[2024-01-13 07:23] LABS: A/G RATIO 1.2 (1.2-2.2); ALANINE AMINOTRANSFERASE,ALT 19 U/L (12-78); ALBUMIN 4.1 g/dL (3.4-5.0); ALKALINE PHOSPHATASE 69 U/L (46-116); ANION GAP 10.7 mmol/L (5.0-14.0); ASPARTATE AMNIOTRANSFERASE,AST 22 U/L (15-37); BILIRUBIN TOTAL 0.6 mg/dL (0.2-1.0); BLOOD UREA NITROGEN,BUN 10 mg/dL (7-18); CALCIUM 9.3 mg/dL (8.5-10.1); CARBON DIOXIDE,CO2 28 mmol/L (21-32); CHLORIDE,CL 103 mmol/L (100-108); CREATININE 0.7 mg/dL (0.6-1.0); EST CRCL DRUG DOSING (CG) 71.58 mL/min; ESTIMATED GFR 100 mL/min (>60); GLUCOSE RANDOM 106 mg/dL (74-106); PROTEIN TOTAL,TP 7.4 g/dL (6.4-8.2); SODIUM,NA 142 mmol/L (140-148)
[2024-01-13] MEDS: Lactated Ringers 1,000 ML IV SCH (07:37)
[2024-01-13] MEDS: Nozin Nasal Sanitizer NASBOTH ONE (07:43)
[2024-01-13] MEDS: ceFAZolin 1 GM in Premix Bag 1 BAG IV ONE (07:50)
[2024-01-13] MEDS: Betamethasone Acetate/Betamethasone Sod Phosphate 6 MG/1 ML MDV IARTIC ONE (08:14)
[2024-01-13] MEDS: Bupivacaine 0.5% 30 ML SDV ONE (08:14)
[2024-01-13] MEDS: Acetaminophen/HYDROcodone 325-5 MG Tab PO ONE (09:18)
[2024-01-13 09:37] VITALS: BP 164/88; PULSE 60
== END 2024-01-13 09:40 | disposition home or self-care (01) ==
LOC: JP.SDS 06:29
PROVIDERS: ATTEND Specialist
DX: G56.03 Carpal tunnel syndrome, bilateral upper limbs (principal); K21.9 Gastro-esophageal reflux disease without esophagitis; E03.9 Hypothyroidism, unspecified; Z88.0 Allergy status to penicillin
CPT/HCPCS: 01810; 20526; 36415; 64721; 80053; 85027; A9270; J0665; J0689; J0702; J2250; J2704; J3010; J7120

== ENCOUNTER 2024-03-16 06:31 | Day surgery (SDC) | payer SELFPAY ==
[2024-03-16 06:55] LABS: HEMATOCRIT 39.5 % (34.3-46.0); HEMOGLOBIN 13.4 g/dL (11.2-15.5); MEAN CORPUSCULAR HEMOGLOBIN 33.3 pg (31.6-35.5); MEAN CORPUSCULAR HGB CONC 33.9 g/dL (31.6-35.5); RED BLOOD CELL COUNT 4.03 M/uL (3.77-5.24); WHITE BLOOD CELL COUNT,WBC 4.2 K/uL (3.2-11.0)
[2024-03-16] MEDS ORDERED: fentaNYL 100 MCG/2 ML SDV ONE (07:04)
[2024-03-16] MEDS ORDERED: Propofol 200 MG/20 ML SDV ONE ×2 (07:04→07:54)
[2024-03-16] MEDS ORDERED: Midazolam 1 MG/ML 2 ML SDV ONE (07:04)
[2024-03-16] MEDS ORDERED: Lidocaine 0.5% 50 ML SDV ONE (07:10)
[2024-03-16 07:11] LABS: ANION GAP 7.6 mmol/L (5.0-14.0); CALCIUM 9.5 mg/dL (8.5-10.1); CREATININE 0.8 mg/dL (0.6-1.0); EST CRCL DRUG DOSING (CG) 62.63 mL/min; POTASSIUM,K 4.4 mmol/L (3.6-5.2)
[2024-03-16] MEDS: Nozin Nasal Sanitizer NASBOTH ONE (07:15)
[2024-03-16] MEDS: Lactated Ringers 1,000 ML IV SCH (07:33)
[2024-03-16] MEDS: ceFAZolin 1 GM in Premix Bag 1 BAG IV ONE (07:45)
[2024-03-16] MEDS: Bupivacaine 0.5% 30 ML SDV ONE (08:10)
[2024-03-16] MEDS: Acetaminophen/HYDROcodone 325-5 MG Tab PO ONE (09:34)
[2024-03-16 09:52] VITALS: BP 160/85; PULSE 71
== END 2024-03-16 09:50 | disposition home or self-care (01) ==
LOC: JP.SDS 06:31
PROVIDERS: ATTEND Specialist
DX: G56.02 Carpal tunnel syndrome, left upper limb (principal); Z88.0 Allergy status to penicillin
CPT/HCPCS: 01810; 36415; 64721; 80048; 85027; A9270; J0665; J0689; J2250; J2704; J3010; J7120